=== PATIENT | male | born 1985 ===

== ENCOUNTER 2016-08-01 14:40 | Emergency (ER) | payer MEDICAID ==
[2016-08-01 14:41] VITALS: BMI 28.8
[2016-08-01 14:47] VITALS: BP 125/78; PULSE 71; RESP 18; TEMP 97.8; O2SAT 96
--- NOTE | 2016-08-01 14:54 | ED PDOC ---
HPI: Skin/Bite Injury Time Seen by Provider: 08/01/16 14:59 Chief Complaint (Nursing): Abnormal Skin Integrity Chief Complaint (Provider): Abnormal History Per: Patient History/Exam Limitations: no limitations Onset/Duration Of Symptoms: Hrs (earlier today, approximately 4x hours prior to arrival) Current Symptoms Are (Timing): Still Present Location Of Injury: Left: Ankle, Posterior: Ankle Quality Of Symptoms: Painful Severity: Moderate Additional Complaint(s): 31 year old male patient with no pertinent medical history presents to the ED with complaints of a dog bite to his left ankle that happened earlier today ( approximately 4x hours prior to arrival). He reports that the dog is his own and all of its immunizations (including rabies) are up to date. Patient does not remember his tetanus vaccination history. PMD: Jimi Mills MD - Animal Bite Description Of The Attack: Unprovoked Attack Description Of The Animal: Family Pet Animal Appears: Well Animal's Immunization Status: UTD Past Medical History Reviewed: Historical Data, Nursing Documentation, Vital Signs Vital Signs: Last Vital Signs Temp 97.8 F 08/01/16 14:43 Pulse 71 08/01/16 14:43 Resp 18 08/01/16 14:43 BP 125/78 08/01/16 14:43 Pulse Ox 96 08/01/16 15:17 - Medical History PMH: No Chronic Diseases - Surgical History Other surgeries: eye surgery - Family History Family History: States: No Known Family Hx - Living Arrangements Living Arrangements: With Family - Social History Current smoker - smoking cessation education provided: No Alcohol: Occasional Drugs: Denies - Immunization History Hx Tetanus Toxoid Vaccination: No (not sure of his Tetanus Toxoid vaccination history, not up to date.) - Home Medications Home Medications: Ambulatory Orders Medication Instructions Recorded Amoxicillin/Clavulanate [Augmentin 1 tab PO BID #14 tab 08/01/16 875 MG-125 MG] Ibuprofen [Motrin] 600 mg PO Q6 PRN #15 tab 08/01/16 - Allergies Allergies/Adverse Reactions: Allergies Allergy/AdvReac Type Severity Reaction Status Date / Time No Known Allergies Allergy Verified 11/25/15 09:36 Review of Systems ROS Statement: Except As Marked, All Systems Reviewed And Found Negative Skin: Positive for: Other (dog bite to left ankle) Physical Exam - Reviewed Nursing Documentation Reviewed: Yes Vital Signs Reviewed: Yes - Physical Exam Appears: Positive for: Well, Non-toxic, No Acute Distress Head Exam: Positive for: ATRAUMATIC, NORMOCEPHALIC Skin: Positive for: Normal Color. Negative for: Rash Cardiovascular/Chest: Positive for: Regular Rate, Rhythm Respiratory: Positive for: Normal Breath Sounds. Negative for: Respiratory Distress Extremity: Positive for: Normal ROM, Other (superficial laceration to the posterior left ankle. No active bleeding. Normal distal sensation to left ankle. ) Neurologic/Psych: Positive for: Alert, Oriented (3x) - ECG O2 Sat by Pulse Oximetry: 96 (RA) Pulse Ox Interpretation: Normal Medical Decision Making Medical Decision Makin:59 Initial impression: 31 year old male with a dog bite. Plan: * Boostrix vaccination inj .5ml IM * augmentin 875mg-125mg 1 tab PO * wound repair Wound cleansed with betadine, bacitracin and bandage applied. Wound care instructions given. Rx augmentin and motrin. Advised wound re-check in 2-3 days. Scribe Attestation: Documented by Mee Parra, acting as a scribe for Flori Estevez PA-C. Provider Scribe Attestation: All medical record entries made by the Scribe were at my direction and personally dictated by me. I have reviewed the chart and agree that the record accurately reflects my personal performance of the history, physical exam, medical decision making, and the department course for this patient. I have also personally directed, reviewed, and agree with the discharge instructions and disposition. Disposition - Clinical Impression Clinical Impression: Dog bite, Requires a booster tetanus - Patient ED Disposition Is Patient to be Admitted: No Counseled Patient/Family Regarding: Diagnosis, Need For Followup, Rx Given - Disposition Referrals: Jimi Mills MD [Family Provider] - Disposition: Routine/Home Disposition Time: 15:21 Condition: STABLE Additional Instructions: Take antibiotics as directed. Take Motrin for pain as needed. Keep wound clean and dry. Follow-up with primary doctor recheck in 2-3 days. Prescriptions: Amoxicillin/Clavulanate [Augmentin 875 MG-125 MG] 1 tab PO BID #14 tab Ibuprofen [Motrin] 600 mg PO Q6 PRN #15 tab PRN Reason: Pain, Moderate (4-7) Instructions: Animal Bite (ED), Diphtheria/Acellular Pertussis/Tetanus Vaccine (DTaP) (By injection)
[2016-08-01] MEDS ORDERED: Amoxicillin-Clav 875-125 mg Tab PO STA (14:59)
[2016-08-01] MEDS ORDERED: TDAP Vaccine 0.5 mL Syr IM ONE (14:59)
== END 2016-08-01 15:29 | disposition home or self-care (01) ==
LOC: H.ER 14:40
DX: S91.052A Open bite, left ankle, initial encounter (principal); W54.0XXA Bitten by dog, initial encounter; Z23 Encounter for immunization

== ENCOUNTER 2017-12-11 12:59 | Emergency (ER) | payer MEDICAID ==
[2017-12-11 12:59] VITALS: BMI 28.8
[2017-12-11 13:11] VITALS: O2SAT 98
[2017-12-11] MEDS ORDERED: Sodium Chloride 0.9% 1,000 ML IV STA (14:01)
[2017-12-11 14:29] LABS: BASO % 0.5 % (0.0-2.0); EOS # 0.1 K/uL (0.0-0.7); EOS % 1.4 % (0.0-4.0); HEMOGLOBIN 14.9 g/dL (12.0-18.0); LYMPH # 1.1 K/uL (1.0-4.3); LYMPH % 20.5 % (20.0-40.0); MEAN CELL VOLUME 88.7 fl (80.0-94.0); MEAN CORPUSCULAR HEMOGLOBIN 30.6 pg (27.0-31.0); MEAN CORPUSCULAR HGB CONC 34.5 g/dL (33.0-37.0); MEAN PLATELET VOLUME 8.9 fl (7.2-11.7); MONO # 0.7 K/uL (0.0-0.8); MONO % 13.4 % (0.0-10.0); NEUT # 3.3 K/uL (1.8-7.0); NEUT % 64.2 % (50.0-75.0); NRBC % 0.1 % (0.0-0.0); RBC 4.88 Mil/uL (4.40-5.90); RED CELL DISTRIBUTION WIDTH 13.1 % (11.5-14.5); WHITE BLOOD COUNT 5.1 K/uL (4.8-10.8)
[2017-12-11 14:33] LABS: INR 1.2
[2017-12-11 14:36] LABS: PARTIAL THROMBOPLASTIN TIME 35.5 Seconds (25.6-37.1)
[2017-12-11 14:40] LABS: ALB/GLOB RATIO 1.1 (1.0-2.1); ALBUMIN 4.5 g/dL (3.5-5.0); ALT/SGPT 119 U/L (21-72); AST/SGOT 77 U/L (17-59); BLOOD UREA NITROGEN 17 mg/dl (9-20); CALCIUM 9.4 mg/dL (8.4-10.2); GFR NON-AFRICAN AMERICAN > 60; LIPASE 50 U/L (23-300)
--- NOTE | 2017-12-11 15:40 | ED PDOC ---
HPI: Abdomen Time Seen by Provider: 12/11/17 13:19 Chief Complaint (Nursing): Abdominal Pain History Per: Patient Additional Complaint(s): Pt. states for the past 2-3 days he's had intermittent crampy RLQ abd pain associated with 5-6 episodes of watery diarrhea per day. Currently without any abd pain. Pain only comes about during BM's. Pt. states that today he noticed blood on the toilet paper after he wiped but not mixed into his stool or in the toilet bowl. States stool is brown in color. Denies weakness, fever, vomiting, melena, hx of anemia. Past Medical History Reviewed: Historical Data, Nursing Documentation, Vital Signs Vital Signs: Last Vital Signs Temp 98.3 F 12/11/17 17:26 Pulse 68 12/11/17 17:26 Resp 20 12/11/17 17:26 BP 132/74 12/11/17 17:26 Pulse Ox 98 12/11/17 17:26 - Medical History PMH: Hyperthyroidism, Hypothyroidism Denies: Chronic Kidney Disease - Family History Family History: States: No Known Family Hx - Immunization History Hx Tetanus Toxoid Vaccination: No (not sure of his Tetanus Toxoid vaccination history, not up to date.) - Home Medications Home Medications: Ambulatory Orders Medication Instructions Recorded Amoxicillin/Clavulanate [Augmentin 1 tab PO BID #14 tab 08/01/16 875 MG-125 MG] Ibuprofen [Motrin] 600 mg PO Q6 PRN #15 tab 08/01/16 Dicyclomine [Bentyl] 20 mg PO TID PRN #15 tab 12/11/17 - Allergies Allergies/Adverse Reactions: Allergies Allergy/AdvReac Type Severity Reaction Status Date / Time No Known Allergies Allergy Verified 12/11/17 13:09 Review of Systems ROS Statement: Except As Marked, All Systems Reviewed And Found Negative Gastrointestinal: Positive for: Nausea, Abdominal Pain, Diarrhea, Hematochezia Physical Exam - Physical Exam Appears: Positive for: Well, Non-toxic, No Acute Distress Skin: Positive for: Normal Color, Warm. Negative for: Rash Eye Exam: Positive for: Normal appearance. Negative for: Scleral icterus Cardiovascular/Chest: Positive for: Regular Rate, Rhythm Respiratory: Positive for: CNT, Normal Breath Sounds Gastrointestinal/Abdominal: Positive for: Normal Exam, Bowel Sounds, Soft, Other (Negative Psoas and obturator sign). Negative for: Tenderness (to deep palpation) Neurologic/Psych: Positive for: Alert, Oriented (x3) - Laboratory Results Result Diagrams: 12/11/17 14:20 12/11/17 14:20 - ECG O2 Sat by Pulse Oximetry: 98 - Progress ED Course And Treament: Labs, Abd US, IV NS bolus ordered. On re-evaluation, pt. sleeping comfortably. Easily awakened. Reports no episodes of diarrhea or abdominal pain while in ED. Abd remains soft and non- tender. Lab and US results reviewed with patient. Offered CT abd/pelvis but refused. Pt. prefers to be discharged with oral meds and states he will return to ED if pain comes back. Encouraged to return to ED for further evaluation. All questions answered. Of note, pt. also states his PMD is currently in the process of evaluating him for elevated LFT's. Disposition - Clinical Impression Clinical Impression: Enteritis - Patient ED Disposition Is Patient to be Admitted: No - Disposition Referrals: [employer] [facility] [Outside] [facility] [Outside] Disposition: Routine/Home Disposition Time: 16:30 Condition: IMPROVED Additional Instructions: RETURN TO ED IMMEDIATELY IF SYMPTOMS WORSEN OR RETURN YOBANI HENRY, thank you for letting us take care of you today. Your provider was Jenifer Mancera MD and you were treated for DIARRHEA,RECTAL BLEEDING. The emergency medical care you received today was directed at your acute symptoms. If you were prescribed any medication, please fill it and take as directed. It may take several days for your symptoms to resolve. Return to the Emergency Department if your symptoms worsen, do not improve, or if you have any other problems. Please contact your doctor or call one of the physicians/clinics you have been referred to that are listed on the Patient Visit Information form that is included in your discharge packet. Bring any paperwork you were given at discharge with you along with any medications you are taking to your follow up visit. Our treatment cannot replace ongoing medical care by a primary care provider outside of the emergency department. Thank you for allowing the [facility] team to be part of your care today. If you had an X-Ray or CT scan: A Radiologist will review the ED reading if any change in treatment is needed we will contact you. If you had a blood, urine, or wound culture: It will take several days for the results, if any change in treatment is needed we will contact you. If you had an STI test: It will take 48 hours for the results. Please call after 1 week if you have not heard back. Prescriptions: Dicyclomine [Bentyl] 20 mg PO TID PRN #15 tab PRN Reason: abdominal pain Instructions: Diarrhea in Adolescents and Adults Forms: [facility] ([employer]) Print Language: HONG KONGER
--- NOTE | 2017-12-11 16:02 | US ---
Date of service: 12/11/2017 PROCEDURE: Ultrasound abdomen limited with special attention to the right lower quadrant HISTORY: ATTENTION APPENDIX COMPARISON: No prior TECHNIQUE: Real-time hand-held transducer ultrasound examination of the abdomen with special attention to the right lower quadrant region was performed. FINDINGS: Appendix was not identified. No appreciable fluid is noted in the right lower quadrant region. IMPRESSION: Appendix not identified. Lack of visualization of the appendix should not decrease the clinical significance of the patient's symptoms.
[2017-12-11 17:27] VITALS: BP 132/74; PULSE 68; RESP 20; TEMP 98.3
== END 2017-12-11 17:30 | disposition home or self-care (01) ==
LOC: H.ER 12:59
DX: K52.9 Noninfective gastroenteritis and colitis, unspecified (principal); E05.90 Thyrotoxicosis, unspecified without thyrotoxic crisis or storm; E03.9 Hypothyroidism, unspecified
CPT/HCPCS: 76705; 80053; 83690; 85025; 85610; 85730; 86850; 86900; 99284; J7030

== ENCOUNTER 2018-07-15 19:46 | Emergency (ER) | payer MEDICAID ==
[2018-07-15 19:46] VITALS: BMI 28.8
[2018-07-15 19:57] VITALS: RESP 18
[2018-07-15] MEDS ORDERED: Sodium Chloride 0.9% 1,000 ML IV STA (20:24)
--- NOTE | 2018-07-15 20:30 | ED PDOC ---
HPI: Abdomen Time Seen by Provider: 07/15/18 20:11 Chief Complaint (Nursing): Abdominal Pain History Per: Patient Additional Complaint(s): Pt. states this morning during breakfast he developed periumbilical pain radiating to epigastric area associated with 6 episodes of non-bloody water diarrhea. States during the afternoon he developed a tactile fever but has not taken any antipyretics. Also states he took pepto-bismol which has alleviated the diarrhea. Of note, pt. states his was in this ED 2 days ago for vomiting and diarrhea without fever and was subsequently discharged with meds for nausea. States her symptoms have been improving. Pt. further states he is currently under the care of Dr. Sims (GI) as he was found to have elevated LFTs. Pt. states he was tested for hepatitis which was negative. He was advised to eat a low fat diet but not prescribed any meds. Denies melena, hematochezia BRBPR, previous abdominal surgeries, recent travel, post-prandial pain, headache. Past Medical History Reviewed: Historical Data, Nursing Documentation, Vital Signs Vital Signs: Last Vital Signs Temp 100.5 F H 07/15/18 19:54 Pulse 106 H 07/15/18 19:54 Resp 18 07/15/18 19:54 BP 117/69 07/15/18 19:54 Pulse Ox 96 07/15/18 19:54 - Medical History PMH: Hypothyroidism Denies: Chronic Kidney Disease Other PMH: elevated LFTs - Surgical History Surgical History: No Surg Hx - Family History Family History: States: No Known Family Hx - Living Arrangements Living Arrangements: With Family - Social History Alcohol: Occasional (1 beer/month) - Immunization History Hx Tetanus Toxoid Vaccination: No (not sure of his Tetanus Toxoid vaccination history, not up to date.) - Home Medications Home Medications: Ambulatory Orders Medication Instructions Recorded Amoxicillin/Clavulanate [Augmentin 1 tab PO BID #14 tab 08/01/16 875 MG-125 MG] Ibuprofen [Motrin] 600 mg PO Q6 PRN #15 tab 08/01/16 Dicyclomine [Bentyl] 20 mg PO TID PRN #15 tab 12/11/17 Dicyclomine [Bentyl] 20 mg PO TID PRN #10 tab 07/16/18 Famotidine [Pepcid] 20 mg PO DAILY PRN #10 tab 07/16/18 - Allergies Allergies/Adverse Reactions: Allergies Allergy/AdvReac Type Severity Reaction Status Date / Time No Known Allergies Allergy Verified 07/15/18 19:58 Review of Systems ROS Statement: Except As Marked, All Systems Reviewed And Found Negative Constitutional: Positive for: Fever, Chills ENT: Negative for: Nose Congestion, Throat Pain Cardiovascular: Negative for: Chest Pain Respiratory: Negative for: Cough Gastrointestinal: Positive for: Abdominal Pain, Diarrhea. Negative for: Nausea, Vomiting, Hematochezia Musculoskeletal: Negative for: Neck Pain Neurological: Negative for: Headache Physical Exam - Physical Exam Appears: Positive for: Well, Non-toxic, No Acute Distress Skin: Positive for: Normal Color, Warm. Negative for: Rash Eye Exam: Positive for: Normal appearance. Negative for: Conjunctival injection ENT: Positive for: Normal ENT Inspection Neck: Positive for: Normal, Painless ROM, Supple Cardiovascular/Chest: Positive for: Regular Rate, Rhythm Respiratory: Positive for: Normal Breath Sounds Gastrointestinal/Abdominal: Positive for: Normal Exam, Bowel Sounds, Soft. Negative for: Tenderness, Distended, Guarding Back: Positive for: Normal Inspection. Negative for: L CVA Tenderness, R CVA Tenderness Neurological/Psych: Positive for: Awake, Alert, Oriented (x3) - Laboratory Results Result Diagrams: 07/15/18 21:00 07/15/18 21:00 - ECG O2 Sat by Pulse Oximetry: 96 - Progress ED Course And Treament: Labs, abd US, pepcid 20mg IV, IV NS bolus x 1 ordered. Condition: Re-examined, Improved Medical Decision Making Medical Decision Making: Tiime: 2030 Plan: -- VBG -- VMP -- Lipase -- NPO Diet -- CBC with Differentials -- Sodium Chloride IV 1000 mls/hr -- Pepcid 20 mg IVP -- Blood Culture -- Throat Culture -- IV Insertion -- Influenza A B -- Rapid Strep Group A Antigen -- Urinalysis -- US Abdomen Time: 2016 Plan: -- Motrin 800 mg PO -- Maalox Plus 30 ml PO Time: 2317 EXAM: US Abdomen, Right Upper Quadrant. CLINICAL HISTORY: Abd pain TECHNIQUE: Right upper quadrant sonography performed with image documentation. COMPARISON: None provided. FINDINGS: LIVER: Within the upper normal limits in size measuring 15.8 cm in the midclavicular line. The liver is increased in echogenicity compatible with steatosis. No mass. GALLBLADDER: The gallbladder appears within normal limits. No gallbladder wall thickening or pericholecystic fluid. COMMON BILE DUCT: Within normal limits in size. normal caliber measuring 2.8 mm. PANCREAS: The visualized pancreas appears within normal limits. The distal pancreas is obscured by bowel gas. RIGHT KIDNEY: Unremarkable. Normal renal contours. No renal mass or calculus. No hydronephrosis. IMPRESSION: 1. Hepatic size is at the upper limits of normal. Evidence of hepatic steatosis. 2. Otherwise, unremarkable right upper quadrant ultrasound. Electronically signed on Jul 15, 2018 11:18:48 PM EDT by: Elias West M.D., M.B.A., Certified By [employer] Trained MRI and CT Specialist -- On re-evaluation, patient reports of good relief of pain. Patient informed of all results and advised to follow up with PMD for further evaluation of pain. Scribe Attestation: Documented by Mariola Sosa, acting as a scribe Alex Gloria PA-C. Provider Scribe Attestation: All medical record entries made by the Scribe were at my direction and personally dictated by me. I have reviewed the chart and agree that the record accurately reflects my personal performance of the history, physical exam, medical decision making, and the department course for this patient. I have also personally directed, reviewed, and agree with the discharge instructions and disposition. Disposition - Clinical Impression Clinical Impression: Enteritis, Transaminitis - Patient ED Disposition Is Patient to be Admitted: No Counseled Patient/Family Regarding: Studies Performed, Diagnosis, Need For Followup - Disposition Referrals: Panchito Sims MD [Staff Provider] - Disposition: Routine/Home Disposition Time: 23:18 Condition: IMPROVED Additional Instructions: FOLLOW UP WITH YOUR DOCTOR FOR FURTHER EVALUATION RETURN TO ED IMMEDIATELY IF SYMPTOMS WORSEN YOBANI HENRY, thank you for letting us take care of you today. Your provider was Kindra Fraser MD and you were treated for ABD PAIN. The emergency medical care you received today was directed at your acute symptoms. If you were prescribed any medication, please fill it and take as directed. It may take several days for your symptoms to resolve. Return to the Emergency Department if your symptoms worsen, do not improve, or if you have any other problems. Please contact your doctor or call one of the physicians/clinics you have been referred to that are listed on the Patient Visit Information form that is included in your discharge packet. Bring any paperwork you were given at discharge with you along with any medications you are taking to your follow up visit. Our treatment cannot replace ongoing medical care by a primary care provider outside of the emergency department. Thank you for allowing the [facility] team to be part of your care today. If you had an X-Ray or CT scan: A Radiologist will review the ED reading if any change in treatment is needed we will contact you. If you had a blood, urine, or wound culture: It will take several days for the results, if any change in treatment is needed we will contact you. If you had an STI test: It will take 48 hours for the results. Please call after 1 week if you have not heard back. Prescriptions: Dicyclomine [Bentyl] 20 mg PO TID PRN #10 tab PRN Reason: abdominal pain Famotidine [Pepcid] 20 mg PO DAILY PRN #10 tab PRN Reason: abdominal pain Instructions: Diarrhea in Adolescents and Adults Forms: [employer] [facility] (P[place]an) Print Language: BULGARIAN
[2018-07-15 21:10] LABS: BASO % 0.2 % (0.0-2.0); EOS % 0.2 % (0.0-4.0); HEMOGLOBIN 14.4 g/dL (12.0-18.0); LYMPH # 0.5 K/uL (1.0-4.3); LYMPH % 8.1 % (20.0-40.0); MEAN CELL VOLUME 86.9 fl (80.0-94.0); MEAN CORPUSCULAR HEMOGLOBIN 30.3 pg (27.0-31.0); MEAN CORPUSCULAR HGB CONC 34.9 g/dL (33.0-37.0); MEAN PLATELET VOLUME 8.9 fl (7.2-11.7); MONO # 0.5 K/uL (0.0-0.8); NEUT # 5.6 K/uL (1.8-7.0); NEUT % 83.5 % (50.0-75.0); NRBC % 0.1 % (0.0-0.0); PLATELET COUNT 223 K/uL (130-400); RBC 4.73 Mil/uL (4.40-5.90); RED CELL DISTRIBUTION WIDTH 13.5 % (11.5-14.5); WHITE BLOOD COUNT 6.7 K/uL (4.8-10.8)
[2018-07-15 21:11] LABS: VENOUS BLOOD GAS BASE EXCESS 2.4 mmol/L (0.0-2.0); VENOUS BLOOD GAS PCO2 32 mmHg (40-60); VENOUS BLOOD GAS PO2 44 mm/Hg (30-55)
[2018-07-15 21:25] LABS: ALB/GLOB RATIO 1.4 (1.0-2.1); ALBUMIN 4.6 g/dL (3.5-5.0); ALT/SGPT 137 U/L (21-72); AST/SGOT 77 U/L (17-59); BLOOD UREA NITROGEN 20 mg/dl (9-20); CALCIUM 9.7 mg/dL (8.4-10.2); GFR NON-AFRICAN AMERICAN > 60; LIPASE 32 U/L (23-300)
[2018-07-15] MEDS ORDERED: Alum-Mag Hydrox-Simethicone Susp (30 mL) PO ONE (21:27)
[2018-07-15] MEDS ORDERED: Alum-Mag Hydrox-Simethicone Susp (30 mL) ONE (21:50)
[2018-07-15 22:32] LABS: LYMPHOCYTE 8 % (20-50); MONOCYTE 7 % (0-10); NEUTROPHIL 85 % (42-75); PLATELET ESTIMATE NORMAL (NORMAL); TOTAL CELLS COUNTED 100
[2018-07-16 00:29] LABS: URINE BILIRUBIN NEGATIVE (NEGATIVE); URINE BLOOD NEGATIVE (NEGATIVE); URINE CLARITY SLIGHTY-CLOUDY (Clear); URINE COLOR YELLOW (YELLOW); URINE GLUCOSE (UA) NEG (NEGATIVE); URINE LEUKOCYTE ESTERASE NEG Leu/uL (Negative); URINE PROTEIN NEGATIVE (NEGATIVE); URINE UROBILINOGEN 0.2-1.0 mg/dL (0.2-1.0)
[2018-07-16 00:38] VITALS: BP 114/65; PULSE 95; TEMP 97.8
[2018-07-16 00:45] VITALS: O2SAT 96
--- NOTE | 2018-07-16 08:41 | US ---
Date of service: 07/15/2018 HISTORY: epigastric and RUQ eval COMPARISON: None. TECHNIQUE: Sonographic evaluation of the right upper quadrant of the abdomen. FINDINGS: LIVER: Measures 15.8 cm in length. Moderate overall increased echogenicity of the liver parenchyma. No mass. No intrahepatic bile duct dilatation. GALLBLADDER: Unremarkable. No gallstones. No sonographic Htomason sign was elicited. No pericholecystic fluid was noted. No gallbladder wall thickening was noted. COMMON BILE DUCT: Measures three mm. No stones. No dilatation. PANCREAS: Pancreas was not well seen due to overlying bowel gas. RIGHT KIDNEY: Measures 11.5 cm in length. Normal echogenicity. No calculus, mass, or hydronephrosis. AORTA: Not well seen due to overlying bowel gas. IVC: Within normal limits. Visualized hepatic veins appear patent. OTHER FINDINGS: None . IMPRESSION: No ultrasound evidence of acute cholecystitis. Fatty infiltration of the liver. Limited evaluation of the pancreas. This agrees with preliminary report.
== END 2018-07-16 01:03 | disposition home or self-care (01) ==
LOC: H.ER 19:46
DX: K52.9 Noninfective gastroenteritis and colitis, unspecified (principal); K76.0 Fatty (change of) liver, not elsewhere classified
CPT/HCPCS: 76705; 80053; 81003; 82803; 83690; 85025; 87040; 87070; 87430; 87804; 96374; 99283; J7030

== ENCOUNTER 2018-08-05 16:40 | Emergency (ER) | payer MEDICAID ==
[2018-08-05 16:40] VITALS: BMI 28.8
[2018-08-05] MEDS ORDERED: Lidocaine/Epi 1% 1:100000 20 ML IJ STA (17:08)
[2018-08-05] MEDS ORDERED: Povidone Iodine Oint 10% Foilpak UD TOP ONE (17:09)
[2018-08-05] MEDS ORDERED: Povidone Iodine Topical 10% Sol ONE (17:16)
[2018-08-05] MEDS ORDERED: Lidocaine 1% w Epi 1:100,000 Inj ONE (17:16)
--- NOTE | 2018-08-05 17:16 | ED PDOC ---
HPI: Trauma/Fall - HPI Time Seen by Provider: 08/05/18 16:47 Chief Complaint (Nursing): Trauma Chief Complaint (Provider): fall onto Right knee History Per: Patient History/Exam Limitations: no limitations Additional Complaint(s): 33 y/o M with hx of hyperthyroidism who presents after fall onto Right knee. Pt states that he went to go move his father's car for alternate side of the street parking rules when his sandals slipped in mud and he fell onto his Right knee. He was bleeding so his placed a bandage after cleaning wound a little bit with water and came to ER. No pain meds taken as of yet. He is up to date on tetanus vaccine having received it 2 yrs ago. Past Medical History Vital Signs: Last Vital Signs Temp 98.7 F 08/05/18 16:44 Pulse 88 08/05/18 16:44 Resp 16 08/05/18 16:44 BP 125/79 08/05/18 16:44 Pulse Ox 96 08/05/18 16:44 Primary Care Provider: DoctorFaheem - Medical History PMH: Hyperthyroidism, Hypothyroidism Denies: Chronic Kidney Disease - Family History Family History: States: Unknown Family Hx - Immunization History Hx Tetanus Toxoid Vaccination: No (not sure of his Tetanus Toxoid vaccination history, not up to date.) Hx Influenza Vaccination: No Hx Pneumococcal Vaccination: No - Home Medications Home Medications: Ambulatory Orders Medication Instructions Recorded Amoxicillin/Clavulanate [Augmentin 1 tab PO BID #14 tab 08/01/16 875 MG-125 MG] Ibuprofen [Motrin] 600 mg PO Q6 PRN #15 tab 08/01/16 Dicyclomine [Bentyl] 20 mg PO TID PRN #15 tab 12/11/17 Dicyclomine [Bentyl] 20 mg PO TID PRN #10 tab 07/16/18 Famotidine [Pepcid] 20 mg PO DAILY PRN #10 tab 07/16/18 Cephalexin [cephalexin] 500 mg PO QID 5 Days cap 08/05/18 Ibuprofen [Motrin Tab] 600 mg PO Q6 PRN 7 Days tab 08/05/18 - Allergies Allergies/Adverse Reactions: Allergies Allergy/AdvReac Type Severity Reaction Status Date / Time No Known Allergies Allergy Verified 08/05/18 16:43 Review of Systems Musculoskeletal: Positive for: Other (knee pain) Physical Exam - Reviewed Nursing Documentation Reviewed: Yes Vital Signs Reviewed: Yes - Physical Exam Appears: Positive for: Well Extremity: Positive for: Normal ROM (with flexion and extension of Right knee), Capillary Refill (< 2 sec), Other (3 deep abrasions on anterior Right knee, most superior approx 3cm, inferolateral 1.5cmg and inferomedial to that approximately 6cm superficial laceration and abrasion with minimal bleeding as well. All wounds covered in soil. ). Negative for: Deformity - ECG O2 Sat by Pulse Oximetry: 96 Medical Decision Making Medical Decision Making: Ibuprofen 600mg PO x 1 Wounds cleansed under pressure with 500cc NS and sterile water with some removal of dirt. Wounds injected with 1% lido with epi and deep cleansing utilizing saline and gauze scrub with further removal of dirt. Wounds cleansed with hydrogen peroxide and Bacitracin placed. Explained to patient and that given how dirty wounds are, will allow to heal by secondary intention and a course of antibiotics to be prescribed for prevention of infection. Wounds dressed with sterile dressing. Disposition - Clinical Impression Clinical Impression: Abrasion of knee, Laceration of knee without foreign body - Patient ED Disposition Is Patient to be Admitted: No - Disposition Referrals: Eric Klein MD [Family Provider] - Disposition: Routine/Home Disposition Time: 18:00 Condition: STABLE Additional Instructions: You can remove bandages and shower today. Use soap and water to clean wounds and use antibiotic ointment. Keep covered only when needed to prevent sticking to clothing or if may become infected. Take Tylenol or Ibuprofen for pain. Return to ER if your wound becomes red, hot, has pus drainage or fever develops. Prescriptions: Cephalexin [cephalexin] 500 mg PO QID 5 Days cap Ibuprofen [Motrin Tab] 600 mg PO Q6 PRN 7 Days tab PRN Reason: Pain, Moderate (4-7) Instructions: Wound Care (DC), Skin Abrasions (DC) Forms: [employer] (Serbian) Print Language: SYRIAC
[2018-08-05] MEDS ORDERED: Hydrogen Peroxide 237 ML SOL TP ONE (17:29)
[2018-08-05] MEDS ORDERED: Hydrogen Peroxide 3% Soln (480ml) TP ONE (17:31)
[2018-08-05 18:02] VITALS: BP 123/72; PULSE 84; RESP 18; TEMP 98.3
[2018-08-05 21:53] VITALS: O2SAT 96
== END 2018-08-05 18:00 | disposition home or self-care (01) ==
LOC: H.ER 16:40
DX: S80.211A Abrasion, right knee, initial encounter (principal); S81.011A Laceration without foreign body, right knee, initial encounter; W01.0XXA Fall on same level from slipping, tripping and stumbling without subsequent striking against object, initial encounter